=== PATIENT | male | born 1995 | race Caucasian/White ===

== ENCOUNTER 2019-05-07 11:35 | Emergency (ER) | payer OTHER ==
[2019-05-07] MEDS ORDERED: predniSONE 20 MG TABLET PO STA (14:00)
--- NOTE | 2019-05-07 14:02 | ED Physician Documentation ---
History of Present Illness - Stated complaint Stated Complaint: SWOLLEN R FOOT/NAUSEA - Chief complaint Chief Complaint: General - History obtained from History obtained from: Patient - History of Present Illness Timing: How many days ago (3) Pain level max: 0 Pain level now: 0 - Additonal information Additional information: 23-year-old male presents to the emergency department with swelling to the right lower extremity and right foot. States that it started as a bug bite which is very itchy and is now spread. Took Benadryl without relief. No fevers. No pain. Nothing makes it better or worse Review of Systems Constitutional: denies: Fever, Chills Respiratory: denies: Cough GI: denies: Vomiting Musculoskeletal: denies: Neck pain Neurologic: denies: Headache PD PAST MEDICAL HISTORY - Past Medical History Past Medical History: No Cardiovascular: None Respiratory: None Neuro: None Endocrine/Autoimmune: None GI: None : None HEENT: None Psych: None Musculoskeletal: None Derm: None - Past Surgical History Past Surgical History: Yes HEENT: Tonsil/Adenoidectomy - Present Medications Home Medications: Ambulatory Orders Medication Instructions Recorded Confirmed predniSONE [Prednisone] 40 mg PO DAILY #10 tablet 05/07/19 - Allergies Allergies/Adverse Reactions: Allergies Allergy/AdvReac Type Severity Reaction Status Date / Time No Known Drug Allergies Allergy Verified 05/07/19 11:56 - Social History Does the pt smoke?: No Smoking Status: Never smoker Does the pt drink ETOH?: Yes Does the pt have substance abuse?: No - Immunizations Immunizations are current?: Yes - POLST Patient has POLST: No PD ED PE NORMAL - Vitals Vital signs reviewed: Yes - General General: Alert and oriented X 3, No acute distress - Derm Derm: Warm and dry - Extremities Extremities: Other (Swelling and mild erythema to the right foot and ankle. Full range of motion without pain. Blanches easily. No induration.) - Neuro Neuro: Alert and oriented X 3 Results - Vitals Vitals: Vital Signs - 24 hr 05/07/19 11:54 Temperature 36.8 C Heart Rate 88 Respiratory 20 Rate Blood Pressure 132/80 H O2 Saturation 99 Oxygen O2 Source Room air PD MEDICAL DECISION MAKING - ED course Complexity details: considered differential, d/w patient ED course: Patient appears to have an allergic reaction to the right foot. Will place on steroids in addition to Benadryl. No evidence of secondary infection. No evidence of gout or septic joint. No evidence of bony injury. Neurovascularly intact. Patient counseled regarding signs and symptoms for which I believe and urgent re-evaluation would be necessary. Patient with good understanding of and agreement to plan and is comfortable going home at this time This document was made in part using voice recognition software. While efforts are made to proofread this document, sound alike and grammatical errors may occur. Departure - Departure Disposition: 01 Home, Self Care Clinical Impression: Allergic reaction Qualifiers: Encounter type: initial encounter Qualified Code(s): T78.40XA - Allergy, unspecified, initial encounter Condition: Good Instructions: ED Bite Sting Insect Local Allergic React Follow-Up: your,doctor in 3 days if not better [Other] Prescriptions: predniSONE [Prednisone] 40 mg PO DAILY #10 tablet Comments: Use of steroids as prescribed. Return if you worsen. Follow-up with your doctor for further care. This should improve over the next 24 hours. You can continue Benadryl at home as well.
[2019-05-07 14:26] VITALS: BP 132/79
== END 2019-05-07 14:26 | disposition home or self-care (01) ==
LOC: ED 11:35
DX: T78.40XA Allergy, unspecified, initial encounter (principal); W57.XXXA Bitten or stung by nonvenomous insect and other nonvenomous arthropods, initial encounter
CPT/HCPCS: 99283; J7512